=== PATIENT | female | born 1970 | race Caucasian/White ===

== ENCOUNTER 2017-01-29 09:06 | Outpatient (CLI) | payer OTHER ==
--- NOTE | 2017-01-29 14:57 | DIAGNOSTIC IMAGING REPORT ---
PROCEDURE: MG BILATERAL SCREENING W/CAD INDICATION: SCREENING TECHNIQUE: Standard CC and MLO views bilaterally. Computer aided detection was used. COMPARISON: 01/29/2016, 01/30/2015, 10/15/2014 FINDINGS: Heterogeneously dense fibroglandular tissue is present bilaterally. Biopsy marker is present in the inferolateral right breast. No developing densities, areas of architectural distortion, or suspicious microcalcifications. IMPRESSION: 1. Stable mammograms without radiographic evidence of malignancy. RESULT CODE: 1- Negative. A. A negative report should not delay biopsy if a dominant or clinically suspicious mass is present. 10-15% of cancers are not identified by x-ray. B. A negative report may reinforce clinical impression. C. Adenosis and dense breasts may obscure an underlying neoplasm. D. False positive reports average 6-10%. E.. A yearly screening mammogram is recommended. A reminder letter will be scheduled.
== END 2017-01-29 23:00 ==
LOC: MAM SRH 09:06
DX: Z12.31 Encounter for screening mammogram for malignant neoplasm of breast (principal)